=== PATIENT | male | born 1950 | race Caucasian/White ===

== ENCOUNTER 2017-07-12 06:29 | Day surgery (SDC) | payer OTHER ==
[2017-07-12] MEDS ORDERED: Propofol 10 mg/ml Inj (20 ML) ONE (08:17)
[2017-07-12] MEDS ORDERED: Lactated Ringer's 1,000 ML IV ONE (08:20)
--- NOTE | 2017-07-12 08:20 | CP.SDSHP ---
Same Day Surgery H & P - History Proposed Procedure: COLONSCOPY Pre-Op Diagnosis: SEE NOTES - Previous Medical/Surgical History Cardiac: Hypertension, ASHD/CAD Endocrine/Metabolic: Other Misc: Other Pain: 2.Mild Pain Previous Surgical History: COLON POLYPS / POLYPECTOMY - Allergies Allergies: Allergies No Known Allergies Allergy (Verified 07/12/17 06:51) - Physical Exam General Appearance: N Vital Signs: Vital Signs 07/12/17 07/12/17 06:45 08:00 Temperature 97.5 F L Pulse Rate 70 70 Respiratory 19 Rate Blood Pressure 163/99 H O2 Sat by Pulse 99 Oximetry Mental Status: Alert & Oriented x3 Neuro: WNL Heart: Other Lungs: WNL GI: WNL - {Optional Preform as Required} Breast: WNL Abdomen: Other Rectal: Other Integument: WNL [employer] APPLICATION DEVELOPER: WNL Ortho: Other ENT: WNL - Impression Pt. Evaluated Today:Candidate for Anesthesia & Procedure: Yes - Date & Time Time: 08:20 Short Stay Discharge - Short Stay Discharge Admitting Diagnosis/Reason for Visit: HISTORY OF COLON POLYP Disposition: HOME/ ROUTINE
[2017-07-12] MEDS ORDERED: Lactated Ringer's 500 ML IV SCH (08:30)
[2017-07-12] MEDS ORDERED: Belladonna-Phenobarbital PO ONE (08:45)
[2017-07-12 08:59] VITALS: TEMP 97.3
[2017-07-12 11:05] VITALS: BP 152/95; PULSE 61; RESP 16; O2SAT 100
== END 2017-07-12 10:05 | disposition home or self-care (01) ==
LOC: C.ENDO 06:29
PROVIDERS: ATTEND Specialist
DX: Z12.11 Encounter for screening for malignant neoplasm of colon (principal); Z86.010 Personal history of colon polyps; K64.8 Other hemorrhoids; K57.10 Diverticulosis of small intestine without perforation or abscess without bleeding
CPT/HCPCS: 45380; 82948; 88305; J2704; J3010; J7120

== ENCOUNTER 2019-01-10 02:35 | Observation (INO) | payer MEDICARE, OTHER ==
--- NOTE | 2019-01-10 02:47 | C.PDOC ---
History Of Present Illness Patient presents to the ER after he was drinking vegetable juice and developed sudden onset of palpitations and dizziness as when he had his previous heart attack. Denies chest pain or SOB. Time Seen by Provider: 01/10/19 02:47 Chief Complaint (Nursing): Palpitations History Per: Patient History/Exam Limitations: no limitations Onset/Duration Of Symptoms: Mins, Sudden Onset Current Symptoms Are (Timing): Still Present Associated Symptoms: denies: Chest Pain, Dyspnea Quality Of Symptoms: Rapid Heart Rate Severity: Moderate Pain Scale Rating Of: 4 Recent travel outside of the [place]: No Past Medical History Reviewed: Historical Data, Nursing Documentation, Vital Signs Vital Signs: Last Vital Signs Temp 97.5 F L 01/10/19 02:43 Pulse 64 01/10/19 02:43 Resp 15 01/10/19 02:43 BP 172/100 H 01/10/19 02:43 Pulse Ox 98 01/10/19 02:43 - Medical History PMH: CHF, HTN, Hypercholesterolemia, Hyperthyroidism Denies: Chronic Kidney Disease Surgical History: Coronary Stent Family History: States: No Known Family Hx - Social History Hx Alcohol Use: No Hx Substance Use: No - Immunization History Hx Tetanus Toxoid Vaccination: No Hx Influenza Vaccination: Yes Hx Pneumococcal Vaccination: No Review Of Systems Constitutional: Negative for: Fever, Chills Cardiovascular: Positive for: Palpitations. Negative for: Chest Pain Respiratory: Negative for: Shortness of Breath Gastrointestinal: Negative for: Nausea, Vomiting Neurological: Positive for: Dizziness. Negative for: Weakness, Numbness Physical Exam - Physical Exam Appears: Non-toxic Skin: Warm, Dry Head: Normacephalic Eye(s): bilateral: Normal Inspection, PERRL, EOMI Oral Mucosa: Moist Chest: Symmetrical, No Tenderness Cardiovascular: Rhythm Regular Respiratory: No Rales, No Rhonchi, No Wheezing Gastrointestinal/Abdominal: Soft, No Tenderness Neurological/Psych: Oriented x3 ED Course And Treatment - Laboratory Results Result Diagrams: 01/10/19 02:47 01/10/19 04:39 ECG: Interpreted By Me, Viewed By Me ECG Rhythm: Sinus Rhythm (60), Nonspecific Changes O2 Sat by Pulse Oximetry: 98 (Room air) Pulse Ox Interpretation: Normal - Radiology CXR: Interpreted by Me, Viewed By Me CXR Interpretation: No: Infiltrates, Fracture, Pnemothorax Progress Note: EKG, blood work, and CXR ordered. Disposition Discussed With : Karli Juarez Comment: accepted the pt on her service and took over the care at 5:55 AM Doctor Will See Patient In The: Hospital Counseled Patient/Family Regarding: Studies Performed, Diagnosis - Disposition Disposition: HOSPITALIZED Disposition Time: 02:47 Condition: FAIR Forms: [facility] (Chinese) - POA Present On Arrival: None - Clinical Impression Clinical Impression: Palpitations, Chest pain - Scribe Statement The provider has reviewed the documentation as recorded by the Scribroman Roque All medical record entries made by the Shalomibe were at my direction and personally dictated by me. I have reviewed the chart and agree that the record accurately reflects my personal performance of the history, physical exam, medical decision making, and the department course for this patient. I have also personally directed, reviewed, and agree with the discharge instructions and disposition. Decision To Admit - Pt Status Changed To: Hospital Disposition Of: Observation - . Bed Request Type: Telemetry Admitting Physician: Karli Juarez Patient Diagnosis: Palpitations
[2019-01-10 03:57] LABS: BASO % 0.6 % (0.0-2.0); EOS # 0.3 K/uL (0.0-0.7); EOS % 3.8 % (0.0-4.0); HEMOGLOBIN 14.4 g/dL (12.0-18.0); LYMPH # 2.2 K/uL (1.0-4.3); LYMPH % 31.6 % (20.0-40.0); MEAN CELL VOLUME 84.7 fL (80.0-94.0); MEAN CORPUSCULAR HEMOGLOBIN 27.6 pg (27.0-31.0); MEAN CORPUSCULAR HGB CONC 32.6 g/dL (33.0-37.0); MEAN PLATELET VOLUME 8.9 fL (7.2-11.7); MONO # 0.8 K/uL (0.0-0.8); MONO % 10.8 % (0.0-10.0); NEUT # 3.7 K/uL (1.8-7.0); NEUT % 53.2 % (50.0-75.0); NRBC % 0.1 % (0.0-2.0); RBC 5.21 Mil/uL (4.40-5.90); RED CELL DISTRIBUTION WIDTH 14.5 % (11.5-14.5)
[2019-01-10 04:47] LABS: ALB/GLOB RATIO 1.3 (1.0-2.1); ALBUMIN 3.9 g/dL (3.5-5.0); CALCIUM 9.2 mg/dl (8.6-10.4)
[2019-01-10 04:59] LABS: TROPONIN I 0.015 ng/mL (0.00-0.120)
[2019-01-10] MEDS ORDERED: NITROGLYCERIN 0.4 MG SL PRN (06:09)
[2019-01-10 07:04] VITALS: RESP 20
--- NOTE | 2019-01-10 07:39 | RAD ---
Date of service: 01/10/2019 HISTORY: chest pain COMPARISON: None available. TECHNIQUE: 1 view obtained. FINDINGS: LUNGS: No active pulmonary disease. PLEURA: No significant pleural effusion identified, no pneumothorax apparent. CARDIOVASCULAR: No aortic atherosclerotic calcification present. Normal cardiac size. No pulmonary vascular congestion. OSSEOUS STRUCTURES: No significant abnormalities. VISUALIZED UPPER ABDOMEN: Normal. OTHER FINDINGS: None. IMPRESSION: No acute cardiopulmonary disease appreciated.
[2019-01-10] MEDS ORDERED: CHLORHEXIDINE GLUCONATE MM SCH (10:00)
[2019-01-10] MEDS ORDERED: KETOTIFEN FUMARATE OP SCH (10:00)
[2019-01-10] MEDS ORDERED: Tears Naturale Forte (15ml) OU PRN (10:45)
[2019-01-10] MEDS: Multiple Vitamins Tab PO SCH (10:48)
[2019-01-10] MEDS: Enoxaparin 40 mg Syringe SC SCH (10:49)
[2019-01-10] MEDS: Fluticasone Nasal 50 mcg/Spray NAS SCH (10:52)
[2019-01-10] MEDS: Mag&Al/Simet/Diphen/Lido 237 ML KIT MM SCH ×2 (10:53→10:59)
[2019-01-10] MEDS ORDERED: Aritificial Tears (15ml) OU PRN (11:00)
[2019-01-10 12:09] LABS: CK-MB 2.28 ng/mL (0.0-3.38)
[2019-01-10] MEDS ORDERED: Pneumococcal 23-Valent Vaccine IM ONE (12:35)
--- NOTE | 2019-01-10 13:59 | VASCLAB ---
Date of service: 01/10/2019 PROCEDURE: Carotid Duplex Exam. HISTORY: Dizziness COMPARISON: None available. TECHNIQUE: Grayscale and duplex Doppler evaluation of the cervical carotid and vertebral arteries were performed. The common carotid, carotid bifurcations and cervical Internal Carotid Artery (ICA) and proximal External Carotid Artery (ECA) were evaluated. The vertebral arteries were evaluated for gross patency and flow direction. Report prepared by AMANDA Duncan FINDINGS: RIGHT CAROTID ARTERIES: 1. Common Carotid Artery: No significant focal plaque formation of the right common carotid artery. Maximum Peak Systolic velocity: 84 cm/sec: End-diastolic velocity 16 cm/sec. 2. Carotid Bifurcation: plaque formation. Maximum Peak Systolic velocity: 60 cm/sec: End-diastolic velocity 14 cm/sec. 3. Internal Carotid Artery: Plaque description: 3.1. Proximal Segment: Peak systolic velocity 29 cm/sec: End-diastolic velocity 9 cm/sec - % stenosis 0-15% 3.2. Middle Segment: Peak systolic velocity 47 cm/sec: End-diastolic velocity 20 cm/sec - % stenosis 0-15% 3.3. Distal Segment: Peak systolic velocity 44 cm/sec: End-diastolic velocity 14 cm/sec - % stenosis 0-15% 4. External Carotid Artery: No significant focal plaque formation. Peak systolic velocity 71 cm/sec 5. ICA/CCA Ratio: 1.0 LEFT CAROTID ARTERIES: 1. Common Carotid Artery: No significant focal plaque formation of the left common carotid artery. Maximum Peak Systolic velocity: 81 cm/sec: End-diastolic velocity 18 cm/sec. 2. Carotid Bifurcation: plaque formation. Maximum Peak Systolic velocity: 43 cm/sec: End-diastolic velocity 10 cm/sec. 3. Internal Carotid Artery: Plaque description: 3.1. Proximal Segment: Peak systolic velocity 41 cm/sec: End-diastolic velocity 14 cm/sec - % stenosis 0-15% 3.2. Middle Segment: Peak systolic velocity 45 cm/sec: End-diastolic velocity 19 cm/sec - % stenosis 0-15% 3.3. Distal Segment: Peak systolic velocity 81 cm/sec: End-diastolic velocity 33 cm/sec - % stenosis 0-15% 4. External Carotid Artery: No significant focal plaque formation. Peak systolic velocity 69 cm/sec 5. ICA/CCA Ratio: 1.4 VERTEBRAL ARTERIES: 1. Right Vertebral Artery: The right vertebral artery flow direction is antegrade. 2. Left Vertebral Artery: The left vertebral artery flow direction is antegrade. OTHER FINDINGS: 1. Right Brachial Blood pressure: 150/90 mmHg. 2. Left Brachial Blood pressure: 150/100 mmHg. 3. No atherosclerotic calcification present IMPRESSION: RIGHT: Duplex scan does not suggest hemodynamically significant stenosis of the right extracranial carotid arteries. LEFT: Duplex scan does not suggest hemodynamically significant stenosis of the left extracranial carotid arteries.
[2019-01-10 14:21] LABS: BLOOD UREA NITROGEN 17 mg/dL (9-20); CALCIUM 9.2 mg/dl (8.6-10.4); GFR NON-AFRICAN AMERICAN 55
[2019-01-10] MEDS ORDERED: Potassium Chloride 20 mEq ER Tab PO ONE (15:30)
[2019-01-10 21:19] LABS: CK-MB 1.69 ng/mL (0.0-3.38)
--- NOTE | 2019-01-11 07:21 | HP ---
The patient is a 68-year-old male. The patient was seen and examined at the bedside on 01/10/2019. CHIEF COMPLAINT: Palpitation. HISTORY OF PRESENT ILLNESS: Mr. Oz May is a 68-year-old male, came to the emergency room after drinking vegetable juice and developed sudden onset of palpitation and dizziness, and according to the patient, he had previous heart attacks. Denies shortness of breath. No hematemesis, no hematochezia. No headache or dizziness. PAST MEDICAL HISTORY: Congestive heart failure, hypertension, hypercholesterolemia, hyperthyroidism. SURGICAL HISTORY: Coronary stents. FAMILY HISTORY: No relevant family history. REVIEW OF SYSTEMS: The patient was seen and examined at the bedside. Looking comfortable. No fever, no chills, no hematuria, no hematochezia. No headache, no dizziness. No chest pain, no palpitation. PHYSICAL EXAMINATION: VITAL SIGNS: Temperature 97.5, pulse 54, respiratory rate 15, blood pressure 117/100. HEENT: Head normocephalic, atraumatic. Eyes PERRLA. Extraocular muscles intact. Conjunctivae clear. Nose patent. NECK: Supple. No carotid bruit. No JVD. No thyromegaly. CHEST: Bilateral symmetrical. HEART: S1, S2 positive. LUNGS: Clear to auscultation. ABDOMEN: Soft. Bowel sounds present. No organomegaly. EXTREMITIES: No edema. No cyanosis. NEUROLOGIC: The patient is awake, alert. Moving all 4 extremities. No focal deficit. LABORATORY DATA: White blood cells 7, hemoglobin 14.4, hematocrit 44.1, platelets 185. Sodium 137, potassium 3.5, BUN 19, creatinine 1.5, glucose 91. ASSESSMENT AND PLAN: Mr. Oz May is a 68-year-old male with hypokalemia, potassium is low but not very low, replaced; hypochloremia. The patient came with chest pain. At this time, it is related to ELECTROLYTE imbalance We admitted the patient, reported to have cardiac concerns and of the neck. Gastrointestinal and deep venous thrombosis prophylaxis. Repeat labs. We will follow up. Josselin Stein MD [facility] # [id number] MTDD
[2019-01-11 07:29] LABS: HEMOGLOBIN 14.8 g/dL (12.0-18.0); MEAN CELL VOLUME 85.6 fL (80.0-94.0); MEAN CORPUSCULAR HEMOGLOBIN 28.3 pg (27.0-31.0); MEAN CORPUSCULAR HGB CONC 33.1 g/dL (33.0-37.0); RBC 5.22 Mil/uL (4.40-5.90); RED CELL DISTRIBUTION WIDTH 14.8 % (11.5-14.5); WHITE BLOOD COUNT 5.9 K/uL (4.8-10.8)
[2019-01-11 08:37] LABS: B-TYPE NATRIURETIC PEPTIDE 224 pg/mL (0-900); CK-MB 1.19 ng/mL (0.0-3.38)
[2019-01-11] MEDS: Multiple Vitamins Tab PO SCH (09:35)
[2019-01-11] MEDS: Enoxaparin 40 mg Syringe SC SCH (09:37)
[2019-01-11] MEDS: Fluticasone Nasal 50 mcg/Spray NAS SCH (09:37)
[2019-01-11] MEDS: Mag&Al/Simet/Diphen/Lido 237 ML KIT MM SCH (09:38)
[2019-01-11 10:33] LABS: ALB/GLOB RATIO 1.3 (1.0-2.1); ALBUMIN 3.8 g/dL (3.5-5.0); ALT/SGPT 27 U/L (21-72); AST/SGOT 47 U/L (17-59); BLOOD UREA NITROGEN 16 mg/dL (9-20); CALCIUM 8.6 mg/dl (8.6-10.4); GFR NON-AFRICAN AMERICAN 55
--- NOTE | 2019-01-11 10:44 | CARD ---
APPROVED REPORT Date of service: 01/10/2019 EXAM: Two-dimensional and M-mode echocardiogram with Doppler and color Doppler. INDICATION Dizziness and Vertigo Congestive Heart Failure Palpitations Surgery/Intervention Status/Post Intervention: Stent RISK FACTORS Hypertension Hyperlipidemia 2D DIMENSIONS IVSd1.1 (0.7-1.1cm)LVDd4.3 (3.9-5.9cm) PWd0.9 (0.7-1.1cm)LA Xlvezm28 (18-58mL) LVDs2.5 (2.5-4.0cm)FS (%) 41.4 % LVEF (%)70.0 (>50%)LVEF (Damian's)65 % M-Mode DIMENSIONS Left Atrium (MM)4.14 (2.5-4.0cm)IVSd0.85 (0.7-1.1cm) Aortic Root3.63 (2.2-3.7cm)LVDd4.78 (4.0-5.6cm) Aortic Cusp Exc.2.18 (1.5-2.0cm)PWd1.09 (0.7-1.1cm) FS (%) 43 %LVDs2.71 (2.0-3.8cm) LVEF (%)75 (>50%) Mitral Valve MV E Xpoptkpe81.2cm/sMV A Azoobubl72.7cm/sE/A ratio0.8 TDI Lateral E' Peak V4.42cm/sMedial E' Peak V4.80cm/sE/Lateral E'13.4 E/Medial E'12.3 <Conclusion> Suboptimal study Left ventricle: thickness: normal; size: normal; overall ejection fraction: 65%: diastolic filling pressures: elevated Mitral valve: annulus: normal: leaflets: normal: excursion: normal; no significant trans-mitral gradient: mild incompetence: left atrium: normal Aortic valve: leaflets: normal: excursion: normal; no significant trans-aortic gradient: No significant incompetence: aortic root: normal Right sided Structures: Pulmonary valve: normal; no significant incompetence; Tricuspid valve: normal; no significant incompetence: Intra-cardiac hemodynamics: pulmonary systolic pressures: normal; central venous pressures: normal No pericardial effusion
[2019-01-11] MEDS ORDERED: Potassium Chloride 20 mEq ER Tab PO ONE (11:30)
--- NOTE | 2019-01-11 23:53 | CARD ---
APPROVED REPORT Date of service: 01/10/2019 EKG Measurement Heart [id number] <Conclusion> Normal sinus rhythm Left axis deviation Low voltage QRS Nonspecific ST and T wave abnormality Abnormal ECG
--- NOTE | 2019-01-12 00:08 | CARD ---
APPROVED REPORT Date of service: 01/10/2019 EKG Measurement Heart [id number] <Conclusion> Normal sinus rhythm Left axis deviation Nonspecific T wave abnormality Abnormal ECG
--- NOTE | 2019-01-12 04:14 | PN ---
DATE: 01/11/2019 SUBJECTIVE: The patient is a 68-year-old male. The patient was seen and examined at the bedside on 01/11/2019, looking comfortable. No fever, no chills. No hematuria, no hematochezia. No headache or dizziness. No chest pain. No palpitation. Still having palpitation once in a while. PHYSICAL EXAMINATION: VITAL SIGNS: Temperature 98.3, pulse 63, blood pressure 128/82, respiratory rate 20. HEENT: Head: Normocephalic, atraumatic. Eyes: PERRLA. Extraocular movements are intact. Conjunctivae clear. Nose patent. Mucous membranes moist. NECK: Supple. No carotid bruits. No JVD or thyromegaly. CHEST: Bilaterally symmetrical. HEART: S1 and S2 positive. LUNGS: Clear to auscultation. ABDOMEN: Soft. Bowel sounds present. No organomegaly. EXTREMITIES: No edema. No cyanosis. NEUROLOGIC: The patient is awake, alert. Moving all four extremities. No focal deficits. MEDICATIONS: Claritin, Crestor, Ecotrin, Flonase, multivitamins. He is on metoprolol, Lovenox, Norvasc, nitroglycerin, Plavix, meropenem. LABORATORY DATA: White blood cells 5.9, hemoglobin 14.8, hematocrit 44.7, and platelets 191. Sodium 139, potassium 3.1, BUN 16, creatinine 1.6, glucose 86, ASSESSMENT AND PLAN: Mr. Lalo Clinton is a 68-year-old male with hypokalemia replaced; hyperchloremia; increased lactate, total creatine kinase was trending down, came with palpitation. Donor Recruitment Manager, Dr. Hooper, is on the case. Getting Claritin, Crestor for hypercholesterolemia, metoprolol for tachycardia, gastrointestinal and deep venous thrombosis prophylaxis. Repeat labs. We will follow up. Josselin Stein MD MTDD
[2019-01-12 07:26] LABS: BASO % 0.5 % (0.0-2.0); EOS # 0.3 K/uL (0.0-0.7); EOS % 5.3 % (0.0-4.0); HEMOGLOBIN 15.1 g/dL (12.0-18.0); LYMPH # 2.1 K/uL (1.0-4.3); LYMPH % 35.4 % (20.0-40.0); MEAN CELL VOLUME 85.7 fL (80.0-94.0); MEAN CORPUSCULAR HEMOGLOBIN 28.5 pg (27.0-31.0); MEAN CORPUSCULAR HGB CONC 33.3 g/dL (33.0-37.0); MONO # 0.5 K/uL (0.0-0.8); MONO % 8.3 % (0.0-10.0); NEUT # 2.9 K/uL (1.8-7.0); NEUT % 50.5 % (50.0-75.0); NRBC % 0.2 % (0.0-2.0); RBC 5.31 Mil/uL (4.40-5.90); RED CELL DISTRIBUTION WIDTH 14.9 % (11.5-14.5); WHITE BLOOD COUNT 5.8 K/uL (4.8-10.8)
[2019-01-12 07:46] VITALS: TEMP 97.8; O2SAT 95
[2019-01-12 08:14] LABS: ALB/GLOB RATIO 1.3 (1.0-2.1); ALBUMIN 3.8 g/dL (3.5-5.0); ALT/SGPT 23 U/L (21-72); AST/SGOT 34 U/L (17-59); BLOOD UREA NITROGEN 15 mg/dL (9-20); CALCIUM 8.8 mg/dl (8.6-10.4); GFR NON-AFRICAN AMERICAN 55
[2019-01-12] MEDS: Fluticasone Nasal 50 mcg/Spray NAS SCH (09:09)
[2019-01-12] MEDS: Multiple Vitamins Tab PO SCH (09:09)
[2019-01-12] MEDS: Enoxaparin 40 mg Syringe SC SCH (09:09)
[2019-01-12] MEDS: Mag&Al/Simet/Diphen/Lido 237 ML KIT MM SCH (09:10)
--- NOTE | 2019-01-12 11:45 | CP.PCM.CON ---
History of Present Illness - History of Present Illness History of Present Illness: 68 years old male with history of CAD, Hypertension and hyperlipidemia who came in with complain of Chest pain and palpitation. As per patient He was not taking his medicine because he has changed his insurance and Doctors. At the time of examination sitting in bed without any distress or complaints. Past Patient History - Past Medical History & Family History Past Medical History?: Yes - Past Social History Smoking Status: Never Smoked - CARDIAC Hx Congestive Heart Failure: Yes Hx Hypercholesterolemia: Yes Hx Hypertension: Yes - PULMONARY Hx Respiratory Disorders: Yes Other/Comment: SOB ON EXERTION. ALERGIC RHINITIS - NEUROLOGICAL Hx Neurological Disorder: No - HEENT Hx HEENT Problems: No - RENAL Hx Chronic Kidney Disease: No - ENDOCRINE/METABOLIC Hx Hyperthyroidism: Yes - HEMATOLOGICAL/ONCOLOGICAL Hx Blood Disorders: No - INTEGUMENTARY Hx Dermatological Problems: No - MUSCULOSKELETAL/RHEUMATOLOGICAL Hx Musculoskeletal Disorders: No - GASTROINTESTINAL Hx Gastrointestinal Disorders: No Hx Hemorrhoids: Yes Other/Comment: H/O DIVERTICULOSIS - GENITOURINARY/GYNECOLOGICAL Hx Genitourinary Disorders: No - PSYCHIATRIC Hx Substance Use: No - SURGICAL HISTORY Hx Coronary Stent: Yes - ANESTHESIA Hx Anesthesia: Yes Hx Anesthesia Reactions: No Hx Malignant Hyperthermia: No Meds Allergies/Adverse Reactions: Allergies Allergy/AdvReac Type Severity Reaction Status Date / Time No Known Allergies Allergy Verified 01/10/19 02:46 - Medications Medications: Current Medications Amlodipine Besylate (Norvasc) 5 mg PO DAILY [facility] Last Admin: 01/12/19 09:09 Dose: 5 mg Artificial Tears (Artificial Tears) 0 ml OU DAILY PRN PRN Reason: DRY EYES Aspirin (Ecotrin) 81 mg PO DAILY [facility] Last Admin: 01/12/19 09:09 Dose: 81 mg Clopidogrel Bisulfate (Plavix) 75 mg PO DAILY [facility] Last Admin: 01/12/19 09:09 Dose: 75 mg Enalapril Maleate (Vasotec) 20 mg PO DAILY [facility] Enoxaparin Sodium (Lovenox) 40 mg SC DAILY [facility] Last Admin: 01/12/19 09:09 Dose: 40 mg Fluticasone Propionate (Flonase) 2 spr DINESH DAILY [facility] Last Admin: 01/12/19 09:09 Dose: 2 spr Loratadine (Claritin) 10 mg PO DAILY [facility] Last Admin: 01/12/19 09:09 Dose: 10 mg Metoprolol Tartrate (Lopressor) 50 mg PO BID [facility] Last Admin: 01/12/19 09:09 Dose: 50 mg Multivitamins (Hexavitamin) 1 tab PO DAILY [facility] Last Admin: 01/12/19 09:09 Dose: 1 tab Nitroglycerin (Nitrostat Sl Tab) 0.4 mg SL Q5M PRN PRN Reason: Other. CHEST PAIN Rosuvastatin Calcium (Crestor) 10 mg PO [facility] Last Admin: 01/11/19 21:33 Dose: 10 mg Saliva Substitute (First Magic Mouthwash) 15 ml MM DAILY [facility] Last Admin: 01/12/19 09:10 Dose: Not Given Physical Exam - Head Exam Head Exam: NORMOCEPHALIC - Neck Exam Neck exam: Positive for: Normal Inspection - Respiratory Exam Respiratory Exam: NORMAL BREATHING PATTERN - Cardiovascular Exam Cardiovascular Exam: REGULAR RHYTHM - Extremities Exam Extremities exam: Positive for: normal inspection - Neurological Exam Neurological exam: Alert, Oriented x3 Results - Vital Signs Recent Vital Signs: Last Vital Signs Temp 97.8 F 01/12/19 07:00 Pulse 73 01/12/19 09:12 Resp 20 01/12/19 07:00 BP 158/95 H 01/12/19 09:12 Pulse Ox 95 01/12/19 07:00 - Labs Result Diagrams: 01/12/19 07:11 01/12/19 07:11 Labs: Laboratory Results - last 24 hr 01/12/19 01/12/19 07:11 07:11 WBC 5.8 RBC 5.31 Hgb 15.1 Hct 45.5 MCV 85.7 MCH 28.5 MCHC 33.3 RDW 14.9 H Plt Count 190 MPV 9.0 Neut % (Auto) 50.5 Lymph % (Auto) 35.4 [place] % (Auto) 8.3 Eos % (Auto) 5.3 H Baso % (Auto) 0.5 Neut # (Auto) 2.9 Lymph # (Auto) 2.1 [place] # (Auto) 0.5 Eos # (Auto) 0.3 Baso # (Auto) 0.0 Sodium 141 Potassium 3.6 Chloride 102 Carbon Dioxide 32 H Anion Gap 10 BUN 15 Creatinine 1.3 Est GFR ( Amer) > 60 Est GFR (Non-Af Amer) 55 Random Glucose 86 Calcium 8.8 Total Bilirubin 0.6 AST 34 ALT 23 Alkaline Phosphatase 71 Total Protein 6.7 Albumin 3.8 Globulin 2.9 Albumin/Globulin Ratio 1.3 - Impressions Impression: NSR with no-specific ST-T changes. Assessment & Plan (1) Chest pain Assessment and Plan: Patient with history of CAD, Chest pain atypical and cardiac work-up is negative so far. As per patient he is scheduled for cardiac work-up as out patient. If there are no new issues may D/C home. Follow-up and further cardiac work-up as out patient. Status: Acute (2) Palpitations Assessment and Plan: Resolved, EKG sinus rhythm. Resume home meds. Status: Acute
[2019-01-12 12:01] VITALS: BP 145/88
[2019-01-12 12:27] LABS: HEPATITIS B SURFACE AG Negative (NEGATIVE)
--- NOTE | 2019-01-12 12:30 | VASCLAB ---
Date of service: 01/12/2019 PROCEDURE: Ultrasonography renal arterial evaluation HISTORY: SEVERE htn r/o JORGE COMPARISON: None available. TECHNIQUE: Real-time ultrasonography evaluation of the renal arteries were performed. Comparison is made to the aorta. Report prepared by Keith Palma RVT FINDINGS: AORTA: Patent. Peak systolic velocity 66.5 centimeters/second RIGHT RENAL ARTERY: Renal artery to aorta ratio: 0.67 * Proximal segment: Patent. Peak systolic velocity 45.0 centimeters/second * Mid segment: Patent. Peak systolic velocity 32.1 centimeters/second * Distal segment: Patent. Peak systolic velocity 37.6 centimeters/second Other findings: Right Kidney measures approximately 10.9x 6.5 centimeters. LEFT RENAL ARTERY: Renal artery to aorta ratio: 0.78 * Proximal segment: Patent. Peak systolic velocity 61.4 centimeters/second * Mid segment: Patent. Peak systolic velocity 44.8 centimeters/second * Distal segment: Patent. Peak systolic velocity 43.4 centimeters/second Other findings: Left Kidney measures approximately 9.0x4.5 centimeters. Multiple, large cyst were noted IMPRESSION: Limited evaluation due to patient's body habitus. No definite hemodynamically significant stenosis involving the renal arteries as visualized. (Please note that the proximal left peroneal artery was not visualized.
[2019-01-12 12:33] LABS: HEPATITIS B CORE AB NEGATIVE (NEGATIVE)
[2019-01-12 12:45] LABS: HEPATITIS C ANTIBODY NEGATIVE (NEGATIVE)
[2019-01-12 12:49] VITALS: PULSE 72
[2019-01-12 13:29] LABS: URINE BILIRUBIN NEGATIVE (NEGATIVE); URINE BLOOD NEGATIVE (NEGATIVE); URINE CLARITY Clear (Clear); URINE COLOR Yellow (YELLOW); URINE GLUCOSE (UA) NORMAL (Normal); URINE LEUKOCYTE ESTERASE NEG Leu/uL (Negative); URINE PROTEIN NEGATIVE (NEGATIVE); URINE UROBILINOGEN NORMAL mg/dL (0.2-1.0)
--- NOTE | 2019-01-12 14:03 | CP.PCM.CON ---
History of Present Illness - History of Present Illness History of Present Illness: Nephrology Consultation Note: Assessment: Stable uncontrolled severe HTN with urgency obesity hyperlipidemia CAD Hypokalemia and metabolic alkalosis ? neurofibromatas with cafe au lait. also to r/o phaeo CKD 3 renal cyst Plan Hypertension control with meds as ordered. Maintain hemodynamics stable. Avoid hypotension. Patient on RAAS dillon as enalapril. increase to 20 mg/d supplement lytes as needed Secondary HTN work up with plasma metanephrine, pebbles/renin and renal artery doppler (NEG) check urine pro/cr and alb/cr, UA urine Na/K/Cl viral serology Dose meds/antibiotics for reduced GFR Glycemic control. pt need lifestyle modifications, diet/exercise and weight loss Further work up/management as per primary team pt was advised to f/up office 1 week post d/c Thanks for allowing me to participate in care of your patient. Will follow patient with you. Please call if any Qs. had d/w team Dr Dale Reina Office: [phone] CC: none at this time. Reason for consult: HTN management HPI: Pt is a 68 M with hx of hypertension (years) obesity hyperlipidemia CAD, initially admitted to hospital with palpitations. also with HTn urgency hence renal consulted. pt wants to go home and d/w PCP before following up in office as outpt Denies OTC/herbal meds or NSAIDs No recent iodinated contrast exposure. denies smoking/etoh/licorice/decongestants ROS: feels better Cardiovascular: No chest pain. Pulmonary: No shortness of breath or palpitations now. Gastrointestinal: denies abdominal pain No nausea. No vomiting. Genitourinary: No pain while urinating. Denies blood in urine. All other negative except as mentioned in HPI Physical Examination: General Appearance: Comfortable, in no acute respiratory distress, co-operative . obese Vitals reviewed and noted as below Head; Atraumatic, normocephalic ENT: no ulcers no thrush. Tongue is midline. Oropharynx: no rash or ulcers. EYES: Pupils are equal, round and reactive to light accommodation. Eye muscles and extraocular movement intact. Sclera is anicteric. Neck; supple no lymphadenopathy, no thyromegaly Lungs: Normal respiratory rate/effort. Breath sounds bilateral clear Heart: Normal rate. s1s2 normal. No rub or gallop. Extremities: no edema no varicose veins Neurological: Patient is alert, awake and oriented to person, place and time. No focal deficit. Strength bilateral appropriate and equal Skin: Warm and dry. Normal turgor. Palpitation: Normal elasticity for age. numerous cutaneous skin tags on upper torso. light brown hypopigemnted patch on skin RLQ Abdomen: Abdomen is soft. Bowel sounds +. There is no abdominal tenderness, no guarding/rigidity no organomegaly Psych: normal insight and normal affect/mood MSK: no joint tenderness or swelling. Digits and nails normal, no deformity : kidney or bladder not palpable Labs/imaging reviewed. Past medical history, past surgical history, family history, social history, allergy reviewed and noted as below Family hx: no hx of CKD. Rest non-contributory Past Patient History - Past Medical History & Family History Past Medical History?: Yes - Past Social History Smoking Status: Never Smoked - CARDIAC Hx Congestive Heart Failure: Yes Hx Hypercholesterolemia: Yes Hx Hypertension: Yes - PULMONARY Hx Respiratory Disorders: Yes Other/Comment: SOB ON EXERTION. ALERGIC RHINITIS - NEUROLOGICAL Hx Neurological Disorder: No - HEENT Hx HEENT Problems: No - RENAL Hx Chronic Kidney Disease: No - ENDOCRINE/METABOLIC Hx Hyperthyroidism: Yes - HEMATOLOGICAL/ONCOLOGICAL Hx Blood Disorders: No - INTEGUMENTARY Hx Dermatological Problems: No - MUSCULOSKELETAL/RHEUMATOLOGICAL Hx Musculoskeletal Disorders: No - GASTROINTESTINAL Hx Gastrointestinal Disorders: No Hx Hemorrhoids: Yes Other/Comment: H/O DIVERTICULOSIS - GENITOURINARY/GYNECOLOGICAL Hx Genitourinary Disorders: No - PSYCHIATRIC Hx Substance Use: No - SURGICAL HISTORY Hx Coronary Stent: Yes - ANESTHESIA Hx Anesthesia: Yes Hx Anesthesia Reactions: No Hx Malignant Hyperthermia: No Meds Allergies/Adverse Reactions: Allergies Allergy/AdvReac Type Severity Reaction Status Date / Time No Known Allergies Allergy Verified 01/10/19 02:46 - Medications Medications: Current Medications Amlodipine Besylate (Norvasc) 5 mg PO DAILY [facility] Last Admin: 01/12/19 09:09 Dose: 5 mg Artificial Tears (Artificial Tears) 0 ml OU DAILY PRN PRN Reason: DRY EYES Aspirin (Ecotrin) 81 mg PO DAILY [facility] Last Admin: 01/12/19 09:09 Dose: 81 mg Clopidogrel Bisulfate (Plavix) 75 mg PO DAILY [facility] Last Admin: 01/12/19 09:09 Dose: 75 mg Enalapril Maleate (Vasotec) 20 mg PO DAILY [facility] Last Admin: 01/12/19 11:00 Dose: 20 mg Enoxaparin Sodium (Lovenox) 40 mg SC DAILY [facility] Last Admin: 01/12/19 09:09 Dose: 40 mg Fluticasone Propionate (Flonase) 2 spr DINESH DAILY [facility] Last Admin: 01/12/19 09:09 Dose: 2 spr Loratadine (Claritin) 10 mg PO DAILY [facility] Last Admin: 01/12/19 09:09 Dose: 10 mg Metoprolol Tartrate (Lopressor) 50 mg PO BID [facility] Last Admin: 01/12/19 09:09 Dose: 50 mg Multivitamins (Hexavitamin) 1 tab PO DAILY [facility] Last Admin: 01/12/19 09:09 Dose: 1 tab Rosuvastatin Calcium (Crestor) 10 mg PO HS [facility] Last Admin: 01/11/19 21:33 Dose: 10 mg Saliva Substitute (First Magic Mouthwash) 15 ml MM DAILY [facility] Last Admin: 01/12/19 09:10 Dose: Not Given Results - Vital Signs Recent Vital Signs: Last Vital Signs Temp 97.8 F 01/12/19 07:00 Pulse 72 01/12/19 12:00 Resp 20 01/12/19 07:00 BP 145/88 01/12/19 11:00 Pulse Ox 95 01/12/19 07:00 - Labs Result Diagrams: 01/12/19 07:11 01/12/19 07:11 Labs: Laboratory Results - last 24 hr 01/12/19 01/12/19 01/12/19 07:11 07:11 11:37 WBC 5.8 RBC 5.31 Hgb 15.1 Hct 45.5 MCV 85.7 MCH 28.5 MCHC 33.3 RDW 14.9 H Plt Count 190 MPV 9.0 Neut % (Auto) 50.5 Lymph % (Auto) 35.4 Armstrong % (Auto) 8.3 Eos % (Auto) 5.3 H Baso % (Auto) 0.5 Neut # (Auto) 2.9 Lymph # (Auto) 2.1 Armstrong # (Auto) 0.5 Eos # (Auto) 0.3 Baso # (Auto) 0.0 Sodium 141 Potassium 3.6 Chloride 102 Carbon Dioxide 32 H Anion Gap 10 BUN 15 Creatinine 1.3 Est GFR ( Amer) > 60 Est GFR (Non-Af Amer) 55 Random Glucose 86 Calcium 8.8 Total Bilirubin 0.6 AST 34 ALT 23 Alkaline Phosphatase 71 Total Protein 6.7 Albumin 3.8 Globulin 2.9 Albumin/Globulin Ratio 1.3 25-OH Vitamin D Total Urine Color Urine Clarity Urine pH Ur Specific [place] Urine Protein Urine Glucose (UA) Urine Ketones Urine Blood Urine Nitrate Urine Bilirubin Urine Urobilinogen Ur Leukocyte Esterase Urine WBC (Auto) Ur Random Sodium Ur Random Potassium Hep Bs Antigen Negative Hep Bs Antibody Hep B Core IgM Ab Negative Hepatitis C Antibody Negative HIV 1&2 Antibody Screen 01/12/19 01/12/19 01/12/19 11:37 11:37 11:37 WBC RBC Hgb Hct MCV MCH MCHC RDW Plt Count MPV Neut % (Auto) Lymph % (Auto) Armstrong % (Auto) Eos % (Auto) Baso % (Auto) Neut # (Auto) Lymph # (Auto) Armstrong # (Auto) Eos # (Auto) Baso # (Auto) Sodium Potassium Chloride Carbon Dioxide Anion Gap BUN Creatinine Est GFR ( Amer) Est GFR (Non-Af Amer) Random Glucose Calcium Total Bilirubin AST ALT Alkaline Phosphatase Total Protein Albumin Globulin Albumin/Globulin Ratio 25-OH Vitamin D Total 33.2 Urine Color Urine Clarity Urine pH Ur Specific [place] Urine Protein Urine Glucose (UA) Urine Ketones Urine Blood Urine Nitrate Urine Bilirubin Urine Urobilinogen Ur Leukocyte Esterase Urine WBC (Auto) Ur Random Sodium Ur Random Potassium Hep Bs Antigen Hep Bs Antibody Negative Hep B Core IgM Ab Hepatitis C Antibody HIV 1&2 Antibody Screen Negative 01/12/19 01/12/19 13:18 13:18 WBC RBC Hgb Hct MCV MCH MCHC RDW Plt Count MPV Neut % (Auto) Lymph % (Auto) Armstrong % (Auto) Eos % (Auto) Baso % (Auto) Neut # (Auto) Lymph # (Auto) Armstrong # (Auto) Eos # (Auto) Baso # (Auto) Sodium Potassium Chloride Carbon Dioxide Anion Gap BUN Creatinine Est GFR ( Amer) Est GFR (Non-Af Amer) Random Glucose Calcium Total Bilirubin AST ALT Alkaline Phosphatase Total Protein Albumin Globulin Albumin/Globulin Ratio 25-OH Vitamin D Total Urine Color Yellow Urine Clarity Clear Urine pH 7.0 Ur Specific [place] 1.009 Urine Protein Negative Urine Glucose (UA) Normal Urine Ketones Negative Urine Blood Negative Urine Nitrate Negative Urine Bilirubin Negative Urine Urobilinogen Normal Ur Leukocyte Esterase Neg Urine WBC (Auto) 1 Ur Random Sodium 41 Ur Random Potassium 36.8 Hep Bs Antigen Hep Bs Antibody Hep B Core IgM Ab Hepatitis C Antibody HIV 1&2 Antibody Screen
--- NOTE | 2019-01-12 14:09 | CP.PCM.PN ---
Subjective - Date & Time of Evaluation Date of Evaluation: 01/12/19 Time of Evaluation: 14:09 - Subjective Subjective: PATIENT SEEN AND EXAMINED AT THE BEDSIDE Objective - Vital Signs/Intake and Output Vital Signs (last 24 hours): Temp Pulse Resp BP Pulse Ox 97.8 F 72 20 145/88 95 01/12/19 07:00 01/12/19 12:00 01/12/19 07:00 01/12/19 11:00 01/12/19 07:00 - Medications Medications: Current Medications Amlodipine Besylate (Norvasc) 5 mg PO DAILY [facility] [place] Last Admin: 01/12/19 09:09 Dose: 5 mg Artificial Tears (Artificial Tears) 0 ml OU DAILY PRN PRN Reason: DRY EYES Aspirin (Ecotrin) 81 mg PO DAILY [facility] [place] Last Admin: 01/12/19 09:09 Dose: 81 mg Clopidogrel Bisulfate (Plavix) 75 mg PO DAILY [facility] [place] Last Admin: 01/12/19 09:09 Dose: 75 mg Enalapril Maleate (Vasotec) 20 mg PO DAILY [facility] [place] Last Admin: 01/12/19 11:00 Dose: 20 mg Enoxaparin Sodium (Lovenox) 40 mg SC DAILY [facility] [place] Last Admin: 01/12/19 09:09 Dose: 40 mg Fluticasone Propionate (Flonase) 2 spr DINESH DAILY [facility] [place] Last Admin: 01/12/19 09:09 Dose: 2 spr Loratadine (Claritin) 10 mg PO DAILY [facility] [place] Last Admin: 01/12/19 09:09 Dose: 10 mg Metoprolol Tartrate (Lopressor) 50 mg PO BID [facility] [place] Last Admin: 01/12/19 09:09 Dose: 50 mg Multivitamins (Hexavitamin) 1 tab PO DAILY [facility] [place] Last Admin: 01/12/19 09:09 Dose: 1 tab Rosuvastatin Calcium (Crestor) 10 mg PO HS [facility] [place] Last Admin: 01/11/19 21:33 Dose: 10 mg Saliva Substitute (First Magic Mouthwash) 15 ml MM DAILY [facility] Last Admin: 01/12/19 09:10 Dose: Not Given - Labs Labs: 01/12/19 07:11 01/12/19 07:11 PT 11.0 SECONDS (9.7-12.2) 01/11/19 07:18 INR 1.0 01/11/19 07:18 APTT 35 SECONDS (21-34) H 01/11/19 07:18 Assessment and Plan - Assessment and Plan (Free Text) Assessment: FOLLOW UP WITH DR ROSE IN HIS OFFICE ----CALL FOR APPOINTMENT FOLLOW UP WITH DR MANCILLA IN HIS OFFICE CONTINUE HOME MEDICATION ACTIVITY TOLERATED CALL DR ROSE OR GO TO THE EMERGENCY ROOM IF SYMPTOM RETURN OR WORSENING
[2019-01-15 01:48] LABS: ALDO/PRA RATIO 158.3 Ratio (0.9-28.9)
== END 2019-01-12 14:38 | disposition home or self-care (01) ==
LOC: C.ER 02:35 → C.5S 05:54
PROVIDERS: ADMIT Internal Medicine; ATTEND Internal Medicine
DX: I13.0 Hypertensive heart and chronic kidney disease with heart failure and stage 1 through stage 4 chronic kidney disease, or unspecified chronic kidney disease (principal); R00.2 Palpitations; E78.5 Hyperlipidemia, unspecified; E87.3 Alkalosis; E87.6 Hypokalemia; I25.10 Atherosclerotic heart disease of native coronary artery without angina pectoris; I50.9 Heart failure, unspecified; J31.0 Chronic rhinitis; N18.3 Chronic kidney disease, stage 3 (moderate); Z95.5 Presence of coronary angioplasty implant and graft
CPT/HCPCS: 36415; 71045; 80048; 80053; 81001; 82088; 82306; 82436; 82607; 83036; 83835; 83880; 84133; 84244; 84300; 84443; 84484; 85025; 85027; 85610; 85730; 86703; 86705; 86706; 86803; 87340; 93005; 93306; 93880; 93975; 99284; G0378; J1650